=== PATIENT | female | born 1980 | race Caucasian/White ===

== ENCOUNTER 2019-08-11 19:42 | Emergency (ER) | payer MEDICAID ==
[~2019-08-11] VITALS: Ht 162.6 cm; Wt 81.6 kg
[2019-08-11 19:46] VITALS: BP_SYST 149
--- NOTE | 2019-08-11 20:56 | NUR ---
Patient to ER bed 4 to gown for evaluation. Side rails up. Report given to ALFONSO CORDON.
--- NOTE | 2019-08-11 21:20 | NUR ---
patient is alert and oriented x4 and ambulated to ER bed 4. Patient complains of severe anxiety that started about 5 days ago. She came in today because she was unable to tolerate it and feels like her heart is having palpitations. Patient complains of uncomfortable chest pain/pressure that feels as though it is straining. Patient rates it at 9/10. Patient states she feels fatigued and her head is throbbing. Patient denies feelings of nausea, vomiting, shortness of breath, or cough. Patient has a history of severe anxiety disorder and takes lorazepam. Patient has a hx of gallstones and gallbladder removal.
--- NOTE | 2019-08-11 21:29 | NUR ---
ER Dr. JAEGER at bedside examining patient.
--- NOTE | 2019-08-11 21:44 | NUR ---
# 20 gauge angiocath placed to RAC. Use of asceptic technique. Opsite placed over site. Blood return noted. Blood for lab drawn from site. Flushed with 10 cc of normal saline. No evidence of infiltration noted. Patient tolerated well.
[2019-08-11] MEDS ORDERED: LORazepam 2 MG/ML VIAL IM ONE (21:45)
[2019-08-11] MEDS ORDERED: ASPIRIN 81 MG TAB.CHEW PO ONE (21:45)
[2019-08-11 22:07] LABS: BASOPHILS % (AUTO) 0.6 % (0.0-2.0); EOSINOPHILS # (AUTO) 0.3 K/uL (0.0-0.4); EOSINOPHILS % (AUTO) 5.5 % (0.0-4.0); HEMATOCRIT 39.1 % (36-48); HEMOGLOBIN 13.1 g/dL (12.0-16.0); LYMPHOCYTES # (AUTO) 1.6 K/uL (1.0-5.5); LYMPHOCYTES % (AUTO) 25.5 % (20.5-51.5); MEAN CORPUSCULAR HEMOGLOBIN 32 pg (27-31); MEAN CORPUSCULAR HGB CONC 33 % (32-36); MEAN CORPUSCULAR VOLUME 96 fL (79.0-98.0); MONOCYTES # (AUTO) 0.4 K/uL (0.0-1.0); MONOCYTES % (AUTO) 5.8 % (1.7-9.3); NEUTROPHILS % (AUTO) 62.6 % (40.0-70.0); PLATELET COUNT (AUTO) 292 K/uL (130-430); RED BLOOD CELL COUNT(AUTO) 4.08 MIL/uL (4.2-6.2); RED CELL DISTRIBUTION WIDTH 14.1 % (9.0-15.0); WHITE BLOOD COUNT (AUTO) 6.4 K/uL (4.8-10.8)
[2019-08-11 22:10] LABS: CALCIUM 8.1 mg/dL (8.4-11.0); CREATININE 0.8 mg/dL (0.55-1.30); POTASSIUM 3.1 mmol/L (3.5-5.1)
--- NOTE | 2019-08-11 22:10 | NUR ---
Patient tolerated medications well.
[2019-08-11 22:24] LABS: ALBUMIN 3.7 g/dL (3.4-4.8); THYROID STIMULATING HORMONE 2.92 uIu/mL (0.36-3.74); TOTAL BILIRUBIN 0.4 mg/dL (0.0-1.0)
[2019-08-11] MEDS ORDERED: POTASSIUM CHLORIDE 10 MEQ TAB.PRT.SR PO ONE (23:15)
[2019-08-11] MEDS ORDERED: POTASSIUM CHLORIDE 20 MEQ TAB.PRT.SR PO ONE (23:15)
--- NOTE | 2019-08-11 23:18 | NUR ---
Patient tolerated medications well. Sitting comfortably in bed.
[2019-08-12 00:26] VITALS: BP_SYST 127
== END 2019-08-12 00:26 | disposition home or self-care (01) ==
LOC: SED 19:42
DX: E87.6 Hypokalemia (principal); R00.2 Palpitations; Z88.0 Allergy status to penicillin; Z88.2 Allergy status to sulfonamides; Z88.1 Allergy status to other antibiotic agents
CPT/HCPCS: 36415; 71045; 80053; 81025; 82550; 84443; 84484; 85025; 93005; 96372; 99285; J2060

== ENCOUNTER 2019-08-20 17:07 | Emergency (ER) | payer MEDICAID ==
[~2019-08-20] VITALS: Ht 162.6 cm; Wt 80.3 kg
--- NOTE | 2019-08-20 17:14 | NUR ---
Patient to ER bed 04 to gown for evaluation. Side rails up.
[2019-08-20 17:15] VITALS: BP_SYST 127
--- NOTE | 2019-08-20 17:15 | NUR ---
Patient arrived in the ED c/o increased anxiety that started today. Denied any chest pain or shortness of breath. Denied any fevers, nausea, vomiting, or chills. Patient is alert and oriented x4, respirations even and unlabored, speaking in full sentences, ambulating with a steady gait. VSS, pain level 0/10. Informed of wait time. Instructed to notify ED staff for any changes in condition or worsening of symptoms. Patient verbalized understanding.
--- NOTE | 2019-08-20 17:16 | NUR ---
ER Dr. Medrano at bedside examining patient.
[2019-08-20] MEDS ORDERED: LORazepam 1 MG TABLET PO ONE (17:30)
--- NOTE | 2019-08-20 17:35 | NUR ---
Administered Ativan PO as ordered by Dr. Medrano. Patient tolerated the medications well. See eMAR for details.
[2019-08-20 17:37] VITALS: BP_SYST 127
--- NOTE | 2019-08-20 17:37 | NUR ---
Patient given written and verbal discharge instructions and verbalizes understanding. ER MD discussed with patient the results and treatment provided. Patient in stable condition. ID arm band removed. No Rx given. Patient educated on pain management and to follow up with PMD. Pain Scale 0/10. Opportunity for questions provided and answered. Medication side effect fact sheet provided.
== END 2019-08-20 17:37 | disposition home or self-care (01) ==
LOC: SED 17:07
DX: F41.9 Anxiety disorder, unspecified (principal); Z76.0 Encounter for issue of repeat prescription; Z88.1 Allergy status to other antibiotic agents; Z88.0 Allergy status to penicillin; Z88.2 Allergy status to sulfonamides
CPT/HCPCS: 99283

== ENCOUNTER 2019-08-28 18:41 | Emergency (ER) | payer MEDICAID ==
[~2019-08-28] VITALS: Ht 162.6 cm; Wt 85.3 kg
[2019-08-28 19:07] VITALS: BP_SYST 138
[2019-08-28] MEDS ORDERED: TEMAZEPAM 15 MG CAPSULE PO ONE (20:45)
[2019-08-28] MEDS ORDERED: TEMAZEPAM 15 MG CAPSULE ONE (20:56)
[2019-08-28 21:48] VITALS: BP_SYST 138
== END 2019-08-28 21:48 | disposition home or self-care (01) ==
LOC: SED 18:41
DX: F41.9 Anxiety disorder, unspecified (principal); Z88.0 Allergy status to penicillin; Z88.1 Allergy status to other antibiotic agents; Z88.2 Allergy status to sulfonamides
CPT/HCPCS: 99283

== ENCOUNTER 2019-12-28 20:01 | Emergency (ER) | payer MEDICAID ==
[~2019-12-28] VITALS: Ht 162.6 cm; Wt 81.6 kg
[2019-12-28 20:05] VITALS: BP_SYST 137
[2019-12-28] MEDS: ALPRAZolam 0.25 MG TABLET PO ONE (20:47)
[2019-12-28 21:00] VITALS: BP_SYST 137
== END 2019-12-28 21:00 | disposition home or self-care (01) ==
LOC: SED 20:01
DX: H10.89 Other conjunctivitis (principal); F41.9 Anxiety disorder, unspecified; Z88.1 Allergy status to other antibiotic agents; Z88.2 Allergy status to sulfonamides; Z88.0 Allergy status to penicillin
CPT/HCPCS: 99283

== ENCOUNTER 2019-12-31 22:25 | Emergency (ER) | payer MEDICAID ==
[~2019-12-31] VITALS: Ht 162.6 cm; Wt 81.6 kg
[2019-12-31 22:30] VITALS: BP_SYST 146
[2020-01-01] MEDS ORDERED: traZODone HCL 50 MG TABLET (DESYREL) PO ONE (00:30)
[2020-01-01 00:55] VITALS: BP_SYST 146
[2020-01-01] MEDS ORDERED: traZODone HCL 50 MG TABLET (DESYREL) ONE (01:07)
== END 2020-01-01 00:55 | disposition home or self-care (01) ==
LOC: SED 22:25
DX: F41.9 Anxiety disorder, unspecified (principal); F32.9 Major depressive disorder, single episode, unspecified; I10 Essential (primary) hypertension; R00.0 Tachycardia, unspecified; Z79.899 Other long term (current) drug therapy
CPT/HCPCS: 93005; 99283

== ENCOUNTER 2020-01-15 15:50 | Emergency (ER) | payer MEDICAID ==
[~2020-01-15] VITALS: Ht 157.5 cm; Wt 72.6 kg
[2020-01-15 15:50] VITALS: BP_SYST 118
--- NOTE | 2020-01-15 15:50 | NUR ---
Placed in room 4. Placed on alarm security or surveillance monitor, blood pressure machine and pulse oximeter. To gown for exam. Side rails up. Report given to BRAVO Guerin.
--- NOTE | 2020-01-15 15:55 | NUR ---
Patient presented to ER C/O CHEST PAIN. Patient A&Ox4, ambulatory to ER, afebrile, skin pink and warm, pain 6/10, denies N/V/D. Patient states has sudden onset chest pain.
--- NOTE | 2020-01-15 15:55 | NUR ---
Note siobhanmicheal in ED - 01/15/20 at 1703 by ANGEL LUISEDKERWIN Patient presented to ER C/O BODY ACHES. Patient A&Ox4, ambulatory to ER, afebrile, skin pink and warm, pain 05/19, denies N/V/D. Patient states has body aches x1 week, self medicating with PO [place]. Patient states she has HX Lupus.
--- NOTE | 2020-01-15 16:15 | NUR ---
ER Dr. DESHPANDE at bedside examining patient.
[2020-01-15 16:20] VITALS: BP_SYST 121
== END 2020-01-15 16:51 | disposition left against medical advice (07) ==
LOC: SED 15:50
DX: F41.0 Panic disorder [episodic paroxysmal anxiety] (principal); Z88.0 Allergy status to penicillin; Z88.1 Allergy status to other antibiotic agents; Z88.2 Allergy status to sulfonamides
CPT/HCPCS: 93005; 99283; J3410

== ENCOUNTER 2020-04-27 00:18 | Emergency (ER) | payer MEDICAID, OTHER ==
[~2020-04-27] VITALS: Ht 162.6 cm; Wt 81.2 kg
[2020-04-27 00:26] VITALS: BP_SYST 159
[2020-04-27] MEDS ORDERED: SERT50TA PO (00:31)
[2020-04-27] MEDS ORDERED: LORA-259 PO (00:32)
--- NOTE | 2020-04-27 01:00 | NUR ---
PT PLACED IN ED WILSON CHAIR
--- NOTE | 2020-04-27 01:01 | NUR ---
PT BIB SELF PT. REPORTS PRESCRIPTION OF LORAZEPAM RUNNING OUT YESTERDAY AND SINCE THEN SHE STATES FEELING HER HEART RATE INCREASE AT RANDOM AND THEN MAKING HER PANIC PT STATES ALLERGY TO KEFLEX, PENICILLIN, SULFATE, AND TORODOL. PT HAS A HISTORY OF ANXIETY. PT. VITAL SIGNS WITHIN NORMAL LIMITS WILL CONTINUE TO MONITOR.
--- NOTE | 2020-04-27 01:59 | NUR ---
PT RSTING QUIETLY IN ED CHAIR IN NO DISTRESS
--- NOTE | 2020-04-27 02:57 | NUR ---
REPORT GIVEN TO BRAVO PEOPLES WHO WILL ASSUME CARE
--- NOTE | 2020-04-27 02:57 | NUR ---
Assumed care of patient at change of shift. Introduced self to patient positoned for comfort and safety w/ bed to low position sr up, continkue to monitor. Patient resting quietly. No acute distress noted. Vital signs within normal range.
--- NOTE | 2020-04-27 03:53 | NUR ---
KENDELL Bartholomew at bedside examining patient.
--- NOTE | 2020-04-27 04:28 | NUR ---
Patient resting quietly and comfortably at this time. No acute distress noted. Vital signs within normal range. Awaiting for MD evaluation and dispo
[2020-04-27] MEDS ORDERED: ACETAMINOPHEN 325 MG TABLET ONE (05:26)
[2020-04-27] MEDS: ACETAMINOPHEN 325 MG TABLET PO ONE (05:30)
--- NOTE | 2020-04-27 05:31 | NUR ---
patient medicated as ordered. will observe for any adverse reaction. Bed to low position, sr up continue to monitor.
[2020-04-27 06:33] VITALS: BP_SYST 150
--- NOTE | 2020-04-27 06:33 | NUR ---
Patient given written and verbal discharge instructions and verbalizes understanding. ER MD discussed with patient the results and treatment provided. Patient in stable condition. ID arm band removed.. Rx of given. Patient educated on pain management and to follow up with PMD. Pain Scale . Opportunity for questions provided and answered. Medication side effect fact sheet provided.
== END 2020-04-27 06:33 | disposition home or self-care (01) ==
LOC: SED 00:18
DX: F41.9 Anxiety disorder, unspecified (principal); Z88.0 Allergy status to penicillin; Z88.2 Allergy status to sulfonamides; Z88.6 Allergy status to analgesic agent
CPT/HCPCS: 93005; 99283

== ENCOUNTER 2020-05-20 16:49 | Emergency (ER) | payer OTHER ==
[~2020-05-20] VITALS: Ht 162.6 cm; Wt 80.3 kg
[~2020-05-20 16:49] MED LIST: LORA-259 PO; SERT50TA PO
[2020-05-20 17:14] VITALS: BP_SYST 129
[2020-05-20] MEDS ORDERED: LORazepam 1 MG TABLET PO ONE (17:45)
[2020-05-20 17:52] VITALS: BP_SYST 129
== END 2020-05-20 17:52 | disposition home or self-care (01) ==
LOC: SED 16:49
DX: F41.9 Anxiety disorder, unspecified (principal); Z88.0 Allergy status to penicillin; Z88.6 Allergy status to analgesic agent; Z88.2 Allergy status to sulfonamides
CPT/HCPCS: 99283

== ENCOUNTER 2020-06-02 15:42 | Emergency (ER) | payer OTHER ==
[~2020-06-02] VITALS: Ht 162.6 cm; Wt 80.7 kg
[2020-06-02 15:45] VITALS: BP_SYST 139
[2020-06-02] MEDS ORDERED: LORazepam 1 MG TABLET ONE (15:59)
[2020-06-02] MEDS ORDERED: LORazepam 1 MG TABLET PO ONE (16:00)
[2020-06-02 16:55] VITALS: BP_SYST 138
== END 2020-06-02 16:55 | disposition home or self-care (01) ==
LOC: SED 15:42
DX: F41.9 Anxiety disorder, unspecified (principal); Z88.0 Allergy status to penicillin; Z88.2 Allergy status to sulfonamides; Z88.1 Allergy status to other antibiotic agents; Z88.8 Allergy status to other drugs, medicaments and biological substances; Z79.899 Other long term (current) drug therapy
CPT/HCPCS: 93005; 99283

== ENCOUNTER 2020-06-17 19:11 | Emergency (ER) | payer OTHER ==
[~2020-06-17] VITALS: Ht 162.6 cm; Wt 79.4 kg
[2020-06-17 19:31] VITALS: BP_SYST 126
[2020-06-17] MEDS ORDERED: LORazepam 1 MG TABLET PO ONE (20:30)
[2020-06-17 21:23] VITALS: BP_SYST 126
== END 2020-06-17 21:23 | disposition home or self-care (01) ==
LOC: SED 19:11
DX: F41.9 Anxiety disorder, unspecified (principal); Z88.0 Allergy status to penicillin; Z88.2 Allergy status to sulfonamides; Z88.6 Allergy status to analgesic agent
CPT/HCPCS: 99283

== ENCOUNTER 2020-07-21 18:10 | Emergency (ER) | payer OTHER ==
[~2020-07-21] VITALS: Ht 162.6 cm; Wt 80.7 kg
[2020-07-21 18:16] VITALS: BP_SYST 135
[2020-07-21] MEDS ORDERED: LORazepam 2 MG/ML VIAL IM ONE (18:45)
[2020-07-21] MEDS ORDERED: ONDANSETRON 4 MG ODT TAB PO ONE (18:45)
[2020-07-21 19:06] VITALS: BP_SYST 132
== END 2020-07-21 19:06 | disposition home or self-care (01) ==
LOC: SED 18:10
DX: F41.9 Anxiety disorder, unspecified (principal); Z88.0 Allergy status to penicillin; Z88.1 Allergy status to other antibiotic agents; Z88.2 Allergy status to sulfonamides; Z79.899 Other long term (current) drug therapy
CPT/HCPCS: 96372; 99283; J2060; Q0162

== ENCOUNTER 2020-08-18 11:53 | Emergency (ER) | payer OTHER ==
[~2020-08-18] VITALS: Ht 162.6 cm; Wt 80.3 kg
[2020-08-18 11:53] VITALS: BP_SYST 121
[2020-08-18 13:20] VITALS: BP_SYST 122
== END 2020-08-18 13:20 | disposition home or self-care (01) ==
LOC: SED 11:53
DX: F41.9 Anxiety disorder, unspecified (principal); R00.2 Palpitations; Z88.0 Allergy status to penicillin; Z88.1 Allergy status to other antibiotic agents; Z88.2 Allergy status to sulfonamides; Z79.899 Other long term (current) drug therapy
CPT/HCPCS: 93005; 99283

== ENCOUNTER 2020-12-02 02:16 | Emergency (ER) | payer OTHER ==
[~2020-12-02] VITALS: Ht 162.6 cm; Wt 83.9 kg
[2020-12-02 02:16] VITALS: BP_SYST 139
[2020-12-02] MEDS ORDERED: ACETAMINOPHEN 500 MG TABLET PO ONE (03:15)
[2020-12-02] MEDS ORDERED: LORazepam 1 MG TABLET PO ONE (03:15)
[2020-12-02] MEDS ORDERED: LORazepam 1 MG TABLET ONE (03:27)
[2020-12-02 05:10] VITALS: BP_SYST 139
== END 2020-12-02 05:10 | disposition home or self-care (01) ==
LOC: SED 02:16
DX: F41.9 Anxiety disorder, unspecified (principal); M54.5 Low back pain; Z88.0 Allergy status to penicillin; Z88.1 Allergy status to other antibiotic agents; Z88.2 Allergy status to sulfonamides; Z79.899 Other long term (current) drug therapy
CPT/HCPCS: 99283

== ENCOUNTER 2021-07-27 18:16 | Emergency (ER) | payer OTHER ==
[~2021-07-27] VITALS: Ht 162.6 cm; Wt 85.7 kg
[2021-07-27 18:25] VITALS: BP_SYST 138
--- NOTE | 2021-07-27 18:30 | NUR ---
ED MD AT BEDSIDE FOR EVALUATION
--- NOTE | 2021-07-27 18:30 | NUR ---
RECEIVED PATIENT IN BED 3 FROM HOME WITH CC OF PALPITATIONS WITH ANXIETY SYMPTOMS. PATIENT WAS HOPING TO WAIT UNTIL TOMORROW WHEN SHE HAS APPT WITH PSYCH FOR NEW RX SHE RAN OUT. PT TO BE SEEN BY ED MD FOR PLAN OF CARE WITH TRISH.
[2021-07-27] MEDS ORDERED: LORazepam 2 MG/ML VIAL IM ONE (18:45)
[2021-07-27] MEDS ORDERED: CARB15DR93 RIGHT EAR (19:13)
--- NOTE | 2021-07-27 19:22 | NUR ---
Patient given written and verbal discharge instructions and verbalizes understanding. ER MD discussed with patient the results and treatment provided. Patient in stable condition. ID arm band removed. Patient educated on pain management and to follow up with PMD. Opportunity for questions provided and answered. Medication side effect fact sheet provided. Pt exited ED in stablw gait. AOX4.
== END 2021-07-27 19:23 | disposition home or self-care (01) ==
LOC: SED 18:16
DX: F41.9 Anxiety disorder, unspecified (principal); H61.21 Impacted cerumen, right ear; Z79.899 Other long term (current) drug therapy
CPT/HCPCS: 93005; 96372; 99283; J2060

== ENCOUNTER 2021-08-02 23:24 | Emergency (ER) | payer OTHER ==
[~2021-08-02] VITALS: Ht 162.6 cm; Wt 86.2 kg
[~2021-08-02 23:24] MED LIST changes: +CARB15DR93 RIGHT EAR
[2021-08-02 23:30] VITALS: BP_SYST 147
--- NOTE | 2021-08-02 23:34 | NUR ---
Placed in room 4 . Placed on fire alarm operator, blood pressure machine and pulse oximeter. To gown for exam. Side rails up. Report given to MARK CORDON(REG).
--- NOTE | 2021-08-02 23:50 | NUR ---
First contact. Pt presently on monitor.
--- NOTE | 2021-08-03 00:09 | NUR ---
ER at bedside examining patient.
[2021-08-03] MEDS ORDERED: LORazepam 1 MG TABLET PO ONE ×2 (00:30→03:00)
[2021-08-03 01:16] LABS: ANION GAP 14 (5-15); CALCIUM 9.7 mg/dL (8.4-11.0); CHLORIDE 100 mmol/L (98-107); CREATININE 0.67 mg/dL (0.55-1.30); GLUCOSE 101 mg/dL (70-99); SODIUM SERUM 139 mmol/L (136-145); UREA NITROGEN, BLOOD 9 mg/dL (8-21)
[2021-08-03 01:24] LABS: BASOPHILS % (AUTO) 0.5 % (0.0-2.0); EOSINOPHILS # (AUTO) 0.5 K/uL (0.0-0.4); EOSINOPHILS % (AUTO) 6.9 % (0.0-4.0); HEMATOCRIT 38.4 % (36-48); LYMPHOCYTES # (AUTO) 1.4 K/uL (1.0-5.5); LYMPHOCYTES % (AUTO) 20.7 % (20.5-51.5); MEAN CORPUSCULAR HEMOGLOBIN 31 pg (27-31); MEAN CORPUSCULAR HGB CONC 34 % (32-36); MEAN CORPUSCULAR VOLUME 91 fL (79.0-98.0); MONOCYTES # (AUTO) 0.4 K/uL (0.0-1.0); MONOCYTES % (AUTO) 6.1 % (1.7-9.3); NEUTROPHILS # (AUTO) 4.6 K/uL (1.8-7.7); NEUTROPHILS % (AUTO) 65.8 % (40.0-70.0); PLATELET COUNT (AUTO) 286 K/uL (130-430); RED CELL DISTRIBUTION WIDTH 16.7 % (9.0-15.0)
[2021-08-03 01:27] LABS: ALANINE AMINOTRANSFERASE 116 U/L (12-78); ALBUMIN 3.9 g/dL (3.4-4.8); ASPARTATE AMINOTRANSFERASE 90 U/L (10-37); TOTAL BILIRUBIN 0.1 mg/dL (0.0-1.0)
[2021-08-03 01:39] LABS: GFR AFRICAN AMERICAN 126 mL/min (>90)
[2021-08-03] MEDS ORDERED: LORazepam 1 MG TABLET ONE ×2 (02:03→03:04)
[2021-08-03 02:40] VITALS: BP_SYST 124
--- NOTE | 2021-08-03 03:08 | NUR ---
Patient given written and verbal discharge instructions and verbalizes understanding. ER MD discussed with patient the results and treatment provided. Patient in stable condition. ID arm band removed. IV catheter removed intact and dressing applied, no active bleeding. Patient educated on pain management and to follow up with PMD. Opportunity for questions provided and answered.
== END 2021-08-03 03:08 | disposition home or self-care (01) ==
LOC: SED 23:24
DX: R00.2 Palpitations (principal); F41.9 Anxiety disorder, unspecified; Z88.0 Allergy status to penicillin; Z88.1 Allergy status to other antibiotic agents; Z88.2 Allergy status to sulfonamides; Z79.899 Other long term (current) drug therapy
CPT/HCPCS: 36415; 71045; 80053; 83880; 84484; 85025; 93005; 99285

== ENCOUNTER 2021-08-09 20:33 | Emergency (ER) | payer OTHER ==
[~2021-08-09] VITALS: Ht 162.6 cm; Wt 86.2 kg
[2021-08-09 20:41] VITALS: BP_SYST 136
[2021-08-09] MEDS ORDERED: METOCLOPRAMIDE HCL 10 MG/2 ML VIAL IM ONE (21:30)
[2021-08-09] MEDS ORDERED: HYDROcodone/ACETAMIN 5-325 MG TAB (NORCO/ VICODIN) PO ONE (21:30)
[2021-08-09 23:30] VITALS: BP_SYST 123
== END 2021-08-10 00:25 | disposition home or self-care (01) ==
LOC: SED 20:33
DX: R51.9 Headache, unspecified (principal); F41.9 Anxiety disorder, unspecified
CPT/HCPCS: 81025; 96372; 99285; J2765

== ENCOUNTER 2021-08-23 15:03 | Emergency (ER) | payer OTHER ==
[~2021-08-23] VITALS: Ht 162.6 cm; Wt 85.7 kg
[2021-08-23 15:10] VITALS: BP_SYST 137
[2021-08-23] MEDS ORDERED: LORazepam 2 MG/ML VIAL IM ONE (18:15)
[2021-08-23 18:17] VITALS: BP_SYST 129
== END 2021-08-23 18:18 | disposition home or self-care (01) ==
LOC: SED 15:03
DX: F41.9 Anxiety disorder, unspecified (principal); R00.2 Palpitations; I10 Essential (primary) hypertension; Z88.0 Allergy status to penicillin; Z88.2 Allergy status to sulfonamides; Z88.1 Allergy status to other antibiotic agents; Z88.6 Allergy status to analgesic agent
CPT/HCPCS: 93005; 96372; 99283; J2060

== ENCOUNTER 2021-09-19 18:01 | Emergency (ER) | payer OTHER ==
[~2021-09-19] VITALS: Ht 162.6 cm; Wt 85.7 kg
[2021-09-19 18:12] VITALS: BP_SYST 131
--- NOTE | 2021-09-19 18:16 | NUR ---
Assessed pt and pt is waiting in waiting room until a bed becomes available. Pt is A&Ox4. Ambulatory with steady gait. Skin is intact. Pt c/o palpitations, fatigue, and nausea since wednesday. Pt has no pain. No sob. No vomiting. VSS. Has hx of anxiety and chest pain. Allergic to penicillin, toradol, keflex, and sulfa. Hx of gallbladder removal. LMP 08/27/21. Dr. Anderson made aware.
--- NOTE | 2021-09-19 18:20 | NUR ---
EKG performed at by Yulia [facility]. Physician given copy of EKG for review.
[2021-09-19 19:54] LABS: BASOPHILS % (AUTO) 0.6 % (0.0-2.0); EOSINOPHILS # (AUTO) 0.4 K/uL (0.0-0.4); EOSINOPHILS % (AUTO) 5.6 % (0.0-4.0); HEMATOCRIT 37.9 % (36-48); HEMOGLOBIN 12.9 g/dL (12.0-16.0); LYMPHOCYTES # (AUTO) 1.4 K/uL (1.0-5.5); LYMPHOCYTES % (AUTO) 18.4 % (20.5-51.5); MEAN CORPUSCULAR HEMOGLOBIN 32 pg (27-31); MEAN CORPUSCULAR HGB CONC 34 % (32-36); MEAN CORPUSCULAR VOLUME 94 fL (79.0-98.0); MONOCYTES # (AUTO) 0.5 K/uL (0.0-1.0); NEUTROPHILS # (AUTO) 5.4 K/uL (1.8-7.7); NEUTROPHILS % (AUTO) 69.4 % (40.0-70.0); PLATELET COUNT (AUTO) 207 K/uL (130-430); RED BLOOD CELL COUNT(AUTO) 4.04 MIL/uL (4.2-6.2); RED CELL DISTRIBUTION WIDTH 14.4 % (9.0-15.0); WHITE BLOOD COUNT (AUTO) 7.8 K/uL (4.8-10.8)
[2021-09-19 20:03] LABS: ANION GAP 8 (5-15); CALCIUM 8.3 mg/dL (8.4-11.0); CHLORIDE 103 mmol/L (98-107); CREATININE 0.74 mg/dL (0.55-1.30); GLUCOSE 99 mg/dL (70-99); POTASSIUM 4.2 mmol/L (3.5-5.1); SODIUM SERUM 139 mmol/L (136-145); UREA NITROGEN, BLOOD 8 mg/dL (8-21)
[2021-09-19 20:04] LABS: GFR AFRICAN AMERICAN 112 mL/min (>90)
[2021-09-19 20:14] LABS: ALANINE AMINOTRANSFERASE 73 U/L (12-78); ALBUMIN 3.6 g/dL (3.4-4.8); ASPARTATE AMINOTRANSFERASE 48 U/L (10-37); HCG,QUANTITATIVE 0 mIU/ML (0-6); TOTAL BILIRUBIN 0.2 mg/dL (0.0-1.0)
--- NOTE | 2021-09-19 21:50 | NUR ---
ER examining patient in the traige room.
[2021-09-19] MEDS ORDERED: LORA-259 PO ×5 (21:53→22:23)
--- NOTE | 2021-09-19 22:20 | NUR ---
Patient given written and verbal discharge instructions and verbalizes understanding. ER MD discussed with patient the results and treatment provided. Patient in stable condition. ID arm band removed. Rx of Ativan 1mg given. Patient educated on pain management and to follow up with PMD. Pain Scale 0/10. Opportunity for questions provided and answered. Medication side effect fact sheet provided.
[2021-09-19 22:21] VITALS: BP_SYST 129
== END 2021-09-19 22:20 | disposition home or self-care (01) ==
LOC: SED 18:01
DX: R00.2 Palpitations (principal); Z76.0 Encounter for issue of repeat prescription; I10 Essential (primary) hypertension; Z88.0 Allergy status to penicillin; Z88.1 Allergy status to other antibiotic agents; Z88.2 Allergy status to sulfonamides; Z88.6 Allergy status to analgesic agent
CPT/HCPCS: 36415; 71046-TC; 80053; 83880; 84484; 84702; 85025; 93005; 99284

== ENCOUNTER 2021-10-04 13:30 | Emergency (ER) | payer OTHER ==
[~2021-10-04] VITALS: Ht 162.6 cm; Wt 81.6 kg
[2021-10-04 13:45] VITALS: BP_SYST 127
[2021-10-04] MEDS ORDERED: LORazepam 1 MG TABLET PO ONE (15:30)
== END 2021-10-04 15:25 | disposition left against medical advice (07) ==
LOC: SED 13:30
DX: F43.0 Acute stress reaction (principal); Z79.899 Other long term (current) drug therapy
CPT/HCPCS: 93005; 99283

== ENCOUNTER 2021-10-22 22:38 | Emergency (ER) | payer OTHER ==
[~2021-10-22] VITALS: Ht 162.6 cm; Wt 86.2 kg
[2021-10-22 22:42] VITALS: BP_SYST 136
--- NOTE | 2021-10-22 23:31 | NUR ---
ASSUME CARE OF THIS PT HERE FOR PALPITATION D/T ANXIETY ATTACK PT STATED THAT PROBABLY BEC OF THE STRESS, NO SOB NOTED, DENIES N/V/D, DENIES FEVER. PMH: ANXIETY,HTN PRESENTED HERE AAOX4, PT PLACED ON CARDIAC MONITORS. PENDING MD DANIELS.
--- NOTE | 2021-10-22 23:40 | NUR ---
EKG DONE AT BEDSIDE
[2021-10-23 00:31] LABS: RED BLOOD CELL COUNT(AUTO) 3.91 MIL/uL (4.2-6.2); WHITE BLOOD COUNT (AUTO) 6.2 K/uL (4.8-10.8)
--- NOTE | 2021-10-23 00:31 | NUR ---
KENDELL Bartholomew at bedside examining patient.
[2021-10-23 00:35] LABS: BASOPHILS % (AUTO) 0.7 % (0.0-2.0); EOSINOPHILS # (AUTO) 0.5 K/uL (0.0-0.4); EOSINOPHILS % (AUTO) 7.6 % (0.0-4.0); HEMATOCRIT 36.6 % (36-48); HEMOGLOBIN 12.7 g/dL (12.0-16.0); LYMPHOCYTES # (AUTO) 1.3 K/uL (1.0-5.5); LYMPHOCYTES % (AUTO) 21.9 % (20.5-51.5); MEAN CORPUSCULAR HEMOGLOBIN 32 pg (27-31); MEAN CORPUSCULAR HGB CONC 35 % (32-36); MEAN CORPUSCULAR VOLUME 94 fL (79.0-98.0); MONOCYTES # (AUTO) 0.5 K/uL (0.0-1.0); MONOCYTES % (AUTO) 7.7 % (1.7-9.3); NEUTROPHILS # (AUTO) 3.8 K/uL (1.8-7.7); NEUTROPHILS % (AUTO) 62.1 % (40.0-70.0); PLATELET COUNT (AUTO) 216 K/uL (130-430); RED CELL DISTRIBUTION WIDTH 14.1 % (9.0-15.0)
[2021-10-23 00:38] LABS: ANION GAP 9 (5-15); CHLORIDE 107 mmol/L (98-107); CREATININE 0.68 mg/dL (0.55-1.30); GLUCOSE 92 mg/dL (70-99); POTASSIUM 3.8 mmol/L (3.5-5.1); SODIUM SERUM 140 mmol/L (136-145); UREA NITROGEN, BLOOD 9 mg/dL (8-21)
[2021-10-23] MEDS ORDERED: LORazepam 1 MG TABLET PO ONE (00:45)
[2021-10-23 00:47] LABS: ALANINE AMINOTRANSFERASE 141 U/L (12-78); ALBUMIN 3.3 g/dL (3.4-4.8); ASPARTATE AMINOTRANSFERASE 146 U/L (10-37); TOTAL BILIRUBIN 0.2 mg/dL (0.0-1.0)
[2021-10-23 00:49] LABS: GFR AFRICAN AMERICAN 124 mL/min (>90)
[2021-10-23 00:55] VITALS: BP_SYST 133
--- NOTE | 2021-10-23 00:56 | NUR ---
DC PATIENT AAOX4, NO SOB NOTED AND NOT IN ANY DISTRESS, DC INSTRUCTION WERE GIVEN TO PT AND SHE VERBALIZED UNDERSTANDING
== END 2021-10-23 00:56 | disposition home or self-care (01) ==
LOC: SED 22:38
DX: F41.1 Generalized anxiety disorder (principal); R07.89 Other chest pain; F45.41 Pain disorder exclusively related to psychological factors; F13.20 Sedative, hypnotic or anxiolytic dependence, uncomplicated; I10 Essential (primary) hypertension; Z88.0 Allergy status to penicillin; Z88.1 Allergy status to other antibiotic agents; Z88.5 Allergy status to narcotic agent; Z88.6 Allergy status to analgesic agent
CPT/HCPCS: 36415; 71045; 80053; 83880; 84484; 85025; 85379; 93005; 99285

== ENCOUNTER 2021-10-23 14:34 | Emergency (ER) | payer OTHER ==
[~2021-10-23] VITALS: Ht 162.6 cm; Wt 83.9 kg
[2021-10-23 14:35] VITALS: BP_SYST 128
--- NOTE | 2021-10-23 14:35 | NUR ---
BROUGHT BACK TO BED #5 AND TRIAGED. REPORT GIVEN TO TRACIE
--- NOTE | 2021-10-23 14:44 | NUR ---
Pt alert and oriented x 3 upon face to face assessment. Here from home reporting feeling "anxious", and having h/a and upper back tension due to personal issues. Reports intermittent palpitations. Ambulated with steady gait to rm 5. Pending MD campos.
[2021-10-23] MEDS ORDERED: LORazepam 2 MG/ML VIAL IM ONE (14:45)
--- NOTE | 2021-10-23 14:45 | NUR ---
ER Dr. Caro at bedside examining patient.
--- NOTE | 2021-10-23 14:49 | NUR ---
Report to Nevin RN to assume care of patient.
[2021-10-23 15:03] VITALS: BP_SYST 132
--- NOTE | 2021-10-23 15:18 | NUR ---
Patient given written and verbal discharge instructions and verbalizes understanding. ER MD discussed with patient the results and treatment provided. Patient in stable condition. ID arm band removed. Patient educated on pain management and to follow up with PMD. Pain Scale . Opportunity for questions provided and answered. Medication side effect fact sheet provided.
--- NOTE | 2021-10-23 15:20 | NUR ---
PT DISCHARGED BY DR HENDERSON
== END 2021-10-23 15:20 | disposition home or self-care (01) ==
LOC: SED 14:34
DX: R06.4 Hyperventilation (principal); F41.9 Anxiety disorder, unspecified; I10 Essential (primary) hypertension; Z88.0 Allergy status to penicillin; Z88.1 Allergy status to other antibiotic agents; Z88.2 Allergy status to sulfonamides; Z88.6 Allergy status to analgesic agent
CPT/HCPCS: 96372; 99283; J2060

== ENCOUNTER → 2021-11-22 | Emergency (ER) | payer OTHER ==
[~2021-11-22] VITALS: Ht 162.6 cm; Wt 81.6 kg
[~2021-11-22] MED LIST changes: +LORazepam 1 MG TABLET PO ONE
[2021-11-22 17:21] VITALS: BP_SYST 147
--- NOTE | 2021-11-22 17:30 | NUR ---
Pt brought by self, A&Ox4, pt presents to ER with anxiety, chest discomfort since today, skin pink and warm, cap refill <3, VSS, respirations even and unlabored, will cont to monitor.
--- NOTE | 2021-11-22 17:45 | NUR ---
Jorge rosas in [facility] - 11/22/21 at [email or web address] May evaluating patient at bedside
--- NOTE | 2021-11-22 17:50 | NUR ---
Dr aMy evaluating patient in the triage room
[2021-11-22 20:18] VITALS: BP_SYST 147
== END | disposition home or self-care (01) ==
LOC: SED 17:18
DX: F41.9 Anxiety disorder, unspecified (principal); R07.9 Chest pain, unspecified; R06.02 Shortness of breath; I10 Essential (primary) hypertension; Z88.0 Allergy status to penicillin; Z88.1 Allergy status to other antibiotic agents; Z88.2 Allergy status to sulfonamides; Z88.6 Allergy status to analgesic agent; Z79.899 Other long term (current) drug therapy
CPT/HCPCS: 71045; 81025; 93005; 99283

== ENCOUNTER 2021-12-12 01:06 | Emergency (ER) | payer OTHER ==
[~2021-12-12] VITALS: Ht 162.6 cm; Wt 81.6 kg
[~2021-12-12 01:06] MED LIST changes: -LORazepam 1 MG TABLET PO ONE
[2021-12-12 01:25] VITALS: BP_SYST 121
[2021-12-12] MEDS ORDERED: LORA-259 PO (02:36)
[2021-12-12 03:11] VITALS: BP_SYST 127
== END 2021-12-12 03:11 | disposition home or self-care (01) ==
LOC: SED 01:06
DX: F41.9 Anxiety disorder, unspecified (principal); R00.2 Palpitations; I10 Essential (primary) hypertension; Z88.0 Allergy status to penicillin; Z88.1 Allergy status to other antibiotic agents; Z88.2 Allergy status to sulfonamides; Z88.6 Allergy status to analgesic agent; Z79.899 Other long term (current) drug therapy
CPT/HCPCS: 93005; 99283

== ENCOUNTER 2022-01-10 14:06 | Emergency (ER) | payer OTHER ==
[~2022-01-10] VITALS: Ht 162.6 cm; Wt 81.6 kg
[2022-01-10 14:10] VITALS: BP_SYST 139
--- NOTE | 2022-01-10 14:10 | NUR ---
Patient triaged and placed in waiting room. VSS and patient appears in no acute distress at this time. Accompanied by SELF, awaiting available bed, and MD notified of need for MSE.
--- NOTE | 2022-01-10 15:35 | NUR ---
ER DR. HARMON EXAMINING PT IN TRIAGE
[2022-01-10] MEDS ORDERED: LORA-259 PO (15:50)
[2022-01-10] MEDS ORDERED: LORazepam 1 MG TABLET PO ONE (16:00)
[2022-01-10 16:40] VITALS: BP_SYST 139
--- NOTE | 2022-01-10 16:41 | NUR ---
Patient given written and verbal discharge instructions and verbalizes understanding. ER MD discussed with patient the results and treatment provided. Patient in stable condition. ID arm band removed. Rx of ATIVAN given. Patient educated on pain management and to follow up with PMD. Pain Scale 0/10. Opportunity for questions provided and answered. Medication side effect fact sheet provided.
== END 2022-01-10 16:40 | disposition home or self-care (01) ==
LOC: SED 14:06
DX: F41.9 Anxiety disorder, unspecified (principal); I10 Essential (primary) hypertension; Z88.0 Allergy status to penicillin; Z88.1 Allergy status to other antibiotic agents; Z88.2 Allergy status to sulfonamides; Z88.6 Allergy status to analgesic agent; Z79.899 Other long term (current) drug therapy
CPT/HCPCS: 99283

== ENCOUNTER 2022-02-09 17:25 | Emergency (ER) | payer OTHER ==
[~2022-02-09] VITALS: Ht 162.6 cm; Wt 86.2 kg
[2022-02-09 17:25] VITALS: BP_SYST 139
--- NOTE | 2022-02-09 17:27 | NUR ---
Patient triaged and placed in waiting room. VSS and patient appears in no acute distress at this time. Accompanied by SELF, awaiting available bed, and MD notified of need for MSE.
[2022-02-09] MEDS ORDERED: LORazepam 1 MG TABLET PO ONE (19:15)
[2022-02-09] MEDS ORDERED: LORA-259 PO (19:22)
--- NOTE | 2022-02-09 20:03 | NUR ---
Patient given written and verbal discharge instructions and verbalizes understanding. ER MD DR HARMON discussed with patient the results and treatment provided. Patient in stable condition. ID arm band removed. Rx OF ATIVAN given. Patient educated on pain management and to follow up with PMD. Pain Scale 0/10. Opportunity for questions provided and answered. Medication side effect fact sheet provided.
[2022-02-09 20:05] VITALS: BP_SYST 135
== END 2022-02-09 20:05 | disposition home or self-care (01) ==
LOC: SED 17:25
DX: F41.9 Anxiety disorder, unspecified (principal); R07.9 Chest pain, unspecified; I10 Essential (primary) hypertension; Z88.0 Allergy status to penicillin; Z88.1 Allergy status to other antibiotic agents; Z88.2 Allergy status to sulfonamides; Z88.6 Allergy status to analgesic agent; Z79.899 Other long term (current) drug therapy
CPT/HCPCS: 93005; 99283

== ENCOUNTER 2022-04-02 19:37 | Emergency (ER) | payer OTHER ==
[~2022-04-02] VITALS: Ht 162.6 cm; Wt 81.6 kg
[2022-04-02 19:59] VITALS: BP_SYST 142
[2022-04-02] MEDS ORDERED: LORazepam 1 MG TABLET PO ONE (20:45)
[2022-04-02] MEDS ORDERED: LORazepam 1 MG TABLET ONE (21:27)
[2022-04-02 21:53] VITALS: BP_SYST 135
== END 2022-04-02 21:53 | disposition home or self-care (01) ==
LOC: SED 19:37
DX: F41.9 Anxiety disorder, unspecified (principal); R53.83 Other fatigue; R07.9 Chest pain, unspecified; I10 Essential (primary) hypertension; Z88.0 Allergy status to penicillin; Z88.1 Allergy status to other antibiotic agents; Z88.2 Allergy status to sulfonamides; Z88.6 Allergy status to analgesic agent; Z79.899 Other long term (current) drug therapy
CPT/HCPCS: 93005; 99283

== ENCOUNTER 2022-06-30 03:04 | Emergency (ER) | payer OTHER ==
[~2022-06-30] VITALS: Ht 162.6 cm; Wt 77.1 kg
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
[2022-06-30 03:23] VITALS: BP_SYST 132
--- NOTE | 2022-06-30 03:27 | NUR ---
DR. ISBELL AT BEDSIDE WITH PATIENT FOR MSE.
[2022-06-30] MEDS ORDERED: ACETAMINOPHEN 325 MG TABLET PO ONE (03:30)
[2022-06-30] MEDS ORDERED: LORazepam 1 MG TABLET PO ONE (03:45)
[2022-06-30] MEDS ORDERED: CETI10CA11 PO (04:28)
[2022-06-30] MEDS ORDERED: FLUT16SP16 NS (04:31)
[2022-06-30 04:44] VITALS: BP_SYST 127
--- NOTE | 2022-06-30 04:45 | NUR ---
Patient given written and verbal discharge instructions and verbalizes understanding. ER MD discussed with patient the results and treatment provided. Patient in stable condition. ID arm band removed. Rx of cetirizine hcl and flonase given. Patient educated on pain management and to follow up with PMD. Opportunity for questions provided and answered. Medication side effect fact sheet provided.
== END 2022-06-30 04:44 | disposition home or self-care (01) ==
LOC: SED 03:04
DX: F41.9 Anxiety disorder, unspecified (principal); R51.9 Headache, unspecified; R07.89 Other chest pain; J32.9 Chronic sinusitis, unspecified; I10 Essential (primary) hypertension; Z88.0 Allergy status to penicillin; Z88.1 Allergy status to other antibiotic agents; Z88.2 Allergy status to sulfonamides; Z88.6 Allergy status to analgesic agent; Z79.899 Other long term (current) drug therapy
CPT/HCPCS: 71045; 81025; 93005; 99283

== ENCOUNTER 2022-10-11 16:58 | Emergency (ER) | payer OTHER ==
[~2022-10-11] VITALS: Ht 162.6 cm; Wt 81.6 kg
[~2022-10-11 16:58] MED LIST changes: +CETI10CA11 PO; +FLUT16SP16 NS
--- NOTE | 2022-10-11 17:02 | NUR ---
Patient to ER bed 07 to gown for evaluation. Side rails up.
[2022-10-11 17:03] VITALS: BP_SYST 145
[2022-10-11] MEDS ORDERED: LORazepam 2 MG/ML VIAL IM ONE (17:15)
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
--- NOTE | 2022-10-11 17:49 | NUR ---
PT STATES SHE IS FEELING MUCH BETTER. ACI GIVEN BY . PT AGREES WITH D/C PLAN. VERB UNDERSTANDING OF ACI.
[2022-10-11 17:51] VITALS: BP_SYST 126
== END 2022-10-11 19:06 | disposition home or self-care (01) ==
LOC: SED 16:58
DX: F41.9 Anxiety disorder, unspecified (principal); I10 Essential (primary) hypertension; Z88.0 Allergy status to penicillin; Z88.1 Allergy status to other antibiotic agents; Z88.2 Allergy status to sulfonamides; Z88.6 Allergy status to analgesic agent; Z79.899 Other long term (current) drug therapy
CPT/HCPCS: 99283; 96372; J2060

== ENCOUNTER 2022-11-16 19:51 | Emergency (ER) | payer OTHER ==
[~2022-11-16] VITALS: Ht 162.6 cm; Wt 74.8 kg
[2022-11-16 19:58] VITALS: BP_SYST 124; PULSE 85; RESP 20; TEMP 97.2; O2SAT 97
[2022-11-16] MEDS ORDERED: LORA-259 PO ×2 (22:36→23:19)
[2022-11-16 22:54] VITALS: BP_SYST 124; PULSE 78; RESP 18; TEMP 98.7; O2SAT 98
== END 2022-11-16 22:52 | disposition home or self-care (01) ==
LOC: SED 19:51
DX: F41.9 Anxiety disorder, unspecified (principal); M79.621 Pain in right upper arm; I10 Essential (primary) hypertension; Z88.0 Allergy status to penicillin; Z88.1 Allergy status to other antibiotic agents; Z88.2 Allergy status to sulfonamides; Z88.6 Allergy status to analgesic agent; Z79.899 Other long term (current) drug therapy
CPT/HCPCS: 93005; 99283

== ENCOUNTER 2022-12-13 15:14 | Emergency (ER) | payer OTHER ==
[~2022-12-13] VITALS: Ht 162.6 cm; Wt 88.9 kg
[~2022-12-13 15:14] MED LIST changes: +ONDA8TAB60 PO
[2022-12-13 15:22] VITALS: BP_SYST 135; PULSE 96; RESP 22; TEMP 98.3; O2SAT 98
[2022-12-13 16:17] LABS: BASOPHILS % (AUTO) 0.5 % (0.0-2.0); EOSINOPHILS # (AUTO) 0.3 K/uL (0.0-0.4); EOSINOPHILS % (AUTO) 3.6 % (0.0-4.0); HEMOGLOBIN 13.4 g/dL (12.0-16.0); LYMPHOCYTES # (AUTO) 1.7 K/uL (1.0-5.5); LYMPHOCYTES % (AUTO) 20.7 % (20.5-51.5); MEAN CORPUSCULAR HEMOGLOBIN 33 pg (27-31); MEAN CORPUSCULAR HGB CONC 34 % (32-36); MEAN CORPUSCULAR VOLUME 97 fL (79.0-98.0); MONOCYTES # (AUTO) 0.5 K/uL (0.0-1.0); MONOCYTES % (AUTO) 6.3 % (1.7-9.3); NEUTROPHILS # (AUTO) 5.8 K/uL (1.8-7.7); NEUTROPHILS % (AUTO) 68.9 % (40.0-70.0); PLATELET COUNT (AUTO) 218 K/uL (130-430); RED BLOOD CELL COUNT(AUTO) 4.11 MIL/uL (4.2-6.2); RED CELL DISTRIBUTION WIDTH 13.3 % (9.0-15.0); WHITE BLOOD COUNT (AUTO) 8.4 K/uL (4.8-10.8)
[2022-12-13 16:22] LABS: ANION GAP 11 (5-15); CALCIUM 8.6 mg/dL (8.4-11.0); CARBON DIOXIDE 26 mmol/L (23-29); CHLORIDE 104 mmol/L (98-107); CREATININE 0.67 mg/dL (0.55-1.30); GFR AFRICAN AMERICAN 125 mL/min (>90); GLUCOSE 98 mg/dL (74-106); POTASSIUM 3.5 mmol/L (3.5-5.1); SODIUM SERUM 141 mmol/L (136-145); UREA NITROGEN, BLOOD 9 mg/dL (8-21)
[2022-12-13 16:25] LABS: GFR NON AFRICAN-AMERICAN 103 mL/min (>90); PROTHROMBIN TIME 10.2 SECS (9.5-12.5)
[2022-12-13 16:35] LABS: ALANINE AMINOTRANSFERASE 57 U/L (12-78); ALBUMIN 3.6 g/dL (3.4-4.8); ASPARTATE AMINOTRANSFERASE 57 U/L (10-37); FREE T4 (FREE THYROXINE) 0.8 ng/dL (0.6-1.6); THYROID STIMULATING HORMONE 3.12 uIu/mL (0.34-4.82); TOTAL BILIRUBIN 0.5 mg/dL (0.0-1.0); TOTAL PROTEIN, SERUM 7.9 g/dL (6.4-8.3)
[2022-12-13] MEDS ORDERED: LORazepam 1 MG TABLET PO ONE (18:00)
== END 2022-12-13 18:28 | disposition home or self-care (01) ==
LOC: SED 15:14
DX: F41.9 Anxiety disorder, unspecified (principal); R00.2 Palpitations; I10 Essential (primary) hypertension; Z88.0 Allergy status to penicillin; Z88.1 Allergy status to other antibiotic agents; Z88.2 Allergy status to sulfonamides; Z88.6 Allergy status to analgesic agent; Z79.899 Other long term (current) drug therapy
CPT/HCPCS: 36415; 71045; 80053; 84439; 84443; 84484; 85025; 85610-TC; 85730-TC; 99284; 99285

== ENCOUNTER 2022-12-27 01:37 | Emergency (ER) | payer OTHER ==
[~2022-12-27] VITALS: Ht 162.6 cm; Wt 81.6 kg
[2022-12-27 01:55] VITALS: BP_SYST 148; PULSE 84; RESP 18; TEMP 98.2; O2SAT 96
[2022-12-27] MEDS ORDERED: LORA-259 PO (02:59)
[2022-12-27 03:05] VITALS: BP_SYST 130; PULSE 83; RESP 18; TEMP 98; O2SAT 97
== END 2022-12-27 03:05 | disposition home or self-care (01) ==
LOC: SED 01:37
DX: F41.9 Anxiety disorder, unspecified (principal); I10 Essential (primary) hypertension; Z88.0 Allergy status to penicillin; Z88.1 Allergy status to other antibiotic agents; Z88.2 Allergy status to sulfonamides; Z88.6 Allergy status to analgesic agent; Z79.899 Other long term (current) drug therapy
CPT/HCPCS: 81025; 99283

== ENCOUNTER 2022-12-31 15:30 | Emergency (ER) | payer OTHER ==
[~2022-12-31] VITALS: Ht 162.6 cm; Wt 83.9 kg
[2022-12-31 15:35] VITALS: BP_SYST 125; PULSE 84; RESP 19; TEMP 97.9; O2SAT 98
[2022-12-31] MEDS ORDERED: ONDANSETRON 4 MG ODT TAB PO ONE (16:45)
[2022-12-31] MEDS ORDERED: LORazepam 1 MG TABLET PO ONE (16:45)
[2022-12-31 17:41] LABS: BASOPHILS # (AUTO) 0.1 K/uL (0.0-0.2); BASOPHILS % (AUTO) 0.7 % (0.0-2.0); EOSINOPHILS # (AUTO) 0.4 K/uL (0.0-0.4); HEMATOCRIT 40.6 % (36-48); HEMOGLOBIN 13.5 g/dL (12.0-16.0); LYMPHOCYTES # (AUTO) 1.7 K/uL (1.0-5.5); LYMPHOCYTES % (AUTO) 24.2 % (20.5-51.5); MEAN CORPUSCULAR HEMOGLOBIN 32 pg (27-31); MEAN CORPUSCULAR HGB CONC 33 % (32-36); MEAN CORPUSCULAR VOLUME 97 fL (79.0-98.0); MONOCYTES # (AUTO) 0.4 K/uL (0.0-1.0); MONOCYTES % (AUTO) 5.6 % (1.7-9.3); NEUTROPHILS # (AUTO) 4.5 K/uL (1.8-7.7); NEUTROPHILS % (AUTO) 63.5 % (40.0-70.0); PLATELET COUNT (AUTO) 290 K/uL (130-430); RED BLOOD CELL COUNT(AUTO) 4.18 MIL/uL (4.2-6.2); RED CELL DISTRIBUTION WIDTH 13.2 % (9.0-15.0)
[2022-12-31 17:53] LABS: CALCIUM 8.6 mg/dL (8.4-11.0); CREATININE 0.62 mg/dL (0.55-1.30); POTASSIUM 3.7 mmol/L (3.5-5.1)
[2022-12-31 17:58] LABS: ALBUMIN 3.7 g/dL (3.4-4.8); TOTAL BILIRUBIN 0.4 mg/dL (0.0-1.0); TOTAL PROTEIN, SERUM 7.8 g/dL (6.4-8.3)
[2022-12-31] MEDS ORDERED: LORA-259 PO (18:13)
[2022-12-31] MEDS ORDERED: ONDA-8 TL (18:13)
[2022-12-31 18:22] VITALS: BP_SYST 122; PULSE 74; RESP 19; TEMP 97.9; O2SAT 98
== END 2022-12-31 18:22 | disposition home or self-care (01) ==
LOC: SED 15:30
DX: F41.9 Anxiety disorder, unspecified (principal); T43.595A Adverse effect of other antipsychotics and neuroleptics, initial encounter; M62.838 Other muscle spasm; R11.0 Nausea; I10 Essential (primary) hypertension; Z88.0 Allergy status to penicillin; Z88.1 Allergy status to other antibiotic agents; Z88.2 Allergy status to sulfonamides; Z88.6 Allergy status to analgesic agent; Y92.89 Other specified places as the place of occurrence of the external cause; Z79.899 Other long term (current) drug therapy
CPT/HCPCS: 99284; 80053; 82550; 83735; 84100; 85025; 36415; 93005; Q0162

== ENCOUNTER 2023-01-03 14:07 | Emergency (ER) | payer OTHER ==
[~2023-01-03] VITALS: Ht 162.6 cm; Wt 64.4 kg
[~2023-01-03 14:07] MED LIST changes: +ONDA-8 TL
[2023-01-03 14:41] VITALS: BP_SYST 146; PULSE 72; RESP 18; TEMP 98.3; O2SAT 98
[2023-01-03] MEDS ORDERED: ONDANSETRON 4 MG ODT TAB PO ONE (15:15)
[2023-01-03] MEDS ORDERED: ONDA-8 TL (15:22)
[2023-01-03 18:12] VITALS: BP_SYST 120; PULSE 72; RESP 16; O2SAT 98
== END 2023-01-03 16:00 | disposition home or self-care (01) ==
LOC: SED 14:07
DX: F41.1 Generalized anxiety disorder (principal); M62.830 Muscle spasm of back; R11.0 Nausea; I10 Essential (primary) hypertension; Z88.0 Allergy status to penicillin; Z88.1 Allergy status to other antibiotic agents; Z88.2 Allergy status to sulfonamides; Z88.6 Allergy status to analgesic agent; Z79.899 Other long term (current) drug therapy
CPT/HCPCS: 99283; Q0162

== ENCOUNTER 2023-01-07 14:52 | Emergency (ER) | payer OTHER ==
[~2023-01-07] VITALS: Ht 162.6 cm; Wt 61.7 kg
[2023-01-07 14:56] VITALS: BP_SYST 140; PULSE 91; RESP 20; TEMP 98.1; O2SAT 98
[2023-01-07] MEDS ORDERED: HYDR-500 PO (16:29)
[2023-01-07 17:17] VITALS: BP_SYST 140; PULSE 91; RESP 20; TEMP 98.1; O2SAT 98
== END 2023-01-07 17:20 | disposition home or self-care (01) ==
LOC: SED 14:52
DX: F41.9 Anxiety disorder, unspecified (principal); R00.2 Palpitations; R06.02 Shortness of breath; I10 Essential (primary) hypertension; Z88.0 Allergy status to penicillin; Z88.1 Allergy status to other antibiotic agents; Z88.2 Allergy status to sulfonamides; Z88.6 Allergy status to analgesic agent; Z79.899 Other long term (current) drug therapy
CPT/HCPCS: 99283

== ENCOUNTER 2023-01-13 00:49 | Emergency (ER) | payer OTHER ==
[~2023-01-13] VITALS: Ht 162.6 cm; Wt 81.6 kg
[~2023-01-13 00:49] MED LIST changes: +HYDR-500 PO
[2023-01-13 01:00] VITALS: BP_SYST 136; PULSE 84; RESP 18; TEMP 97.8; O2SAT 99
[2023-01-13] MEDS: LORazepam 2 MG/ML VIAL IM ONE (01:12)
[2023-01-13 02:16] VITALS: BP_SYST 126; PULSE 72; RESP 16; TEMP 97.8; O2SAT 100
== END 2023-01-13 01:38 | disposition home or self-care (01) ==
LOC: SED 00:49
DX: R06.4 Hyperventilation (principal); F41.9 Anxiety disorder, unspecified; R20.2 Paresthesia of skin; I10 Essential (primary) hypertension; Z88.0 Allergy status to penicillin; Z88.1 Allergy status to other antibiotic agents; Z88.2 Allergy status to sulfonamides; Z88.6 Allergy status to analgesic agent; Z79.899 Other long term (current) drug therapy
CPT/HCPCS: 99283; 96372; J2060

== ENCOUNTER 2023-01-13 12:36 | Emergency (ER) | payer OTHER ==
[~2023-01-13] VITALS: Ht 162.6 cm; Wt 81.6 kg
[2023-01-13 12:37] VITALS: BP_SYST 139; PULSE 89; RESP 18; TEMP 97.2; O2SAT 99
[2023-01-13] MEDS ORDERED: LORazepam 1 MG TABLET PO ONE (13:15)
[2023-01-13 13:27] VITALS: BP_SYST 139; PULSE 89; RESP 18; TEMP 97.2; O2SAT 99
== END 2023-01-13 13:27 | disposition home or self-care (01) ==
LOC: SED 12:36
DX: F41.9 Anxiety disorder, unspecified (principal); I10 Essential (primary) hypertension; Z88.0 Allergy status to penicillin; Z88.1 Allergy status to other antibiotic agents; Z88.2 Allergy status to sulfonamides; Z88.6 Allergy status to analgesic agent; Z79.899 Other long term (current) drug therapy
CPT/HCPCS: 99283

== ENCOUNTER 2023-01-18 18:07 | Emergency (ER) | payer OTHER ==
[~2023-01-18] VITALS: Ht 162.6 cm; Wt 81.6 kg
[2023-01-18 18:31] VITALS: BP_SYST 146; PULSE 122; RESP 16; TEMP 98.3; O2SAT 96
[2023-01-18] MEDS ORDERED: LORazepam 1 MG TABLET PO ONE (19:00)
[2023-01-18] MEDS ORDERED: LORA-259 PO (20:59)
[2023-01-18 21:50] VITALS: BP_SYST 126; PULSE 88; RESP 16; TEMP 98.5; O2SAT 98
== END 2023-01-18 21:50 | disposition home or self-care (01) ==
LOC: SED 18:07
DX: F41.9 Anxiety disorder, unspecified (principal); R00.2 Palpitations; I10 Essential (primary) hypertension; Z88.0 Allergy status to penicillin; Z88.1 Allergy status to other antibiotic agents; Z88.2 Allergy status to sulfonamides; Z88.6 Allergy status to analgesic agent; Z79.899 Other long term (current) drug therapy
CPT/HCPCS: 99283

== ENCOUNTER 2023-02-07 20:35 | Emergency (ER) | payer MEDICAID, OTHER ==
[~2023-02-07] VITALS: Ht 162.6 cm; Wt 81.6 kg
[~2023-02-07 20:35] MED LIST changes: +LORA-258 PO
[2023-02-07 20:39] VITALS: BP_SYST 144; PULSE 95; RESP 18; TEMP 97.5; O2SAT 97
[2023-02-07] MEDS ORDERED: IBUP-1969 PO (23:56)
[2023-02-08 00:09] VITALS: BP_SYST 141; PULSE 87; RESP 18; TEMP 97.5; O2SAT 97
[2023-02-08] MEDS ORDERED: LORA-259 PO (13:42)
== END 2023-02-08 00:09 | disposition home or self-care (01) ==
LOC: SED 20:35
DX: S93.401A Sprain of unspecified ligament of right ankle, initial encounter (principal); I10 Essential (primary) hypertension; Z88.0 Allergy status to penicillin; Z88.1 Allergy status to other antibiotic agents; Z88.2 Allergy status to sulfonamides; Z88.6 Allergy status to analgesic agent; Z79.899 Other long term (current) drug therapy; W18.40XA Slipping, tripping and stumbling without falling, unspecified, initial encounter; Y93.89 Activity, other specified; Y92.481 Parking lot as the place of occurrence of the external cause; Y99.8 Other external cause status
CPT/HCPCS: 73560-TC; 99284

== ENCOUNTER 2023-02-08 11:12 | Emergency (ER) | payer MEDICAID ==
[~2023-02-08] VITALS: Ht 165.1 cm; Wt 72.6 kg
[~2023-02-08 11:12] MED LIST changes: +IBUP-1969 PO
[2023-02-08 11:20] VITALS: BP_SYST 146; PULSE 104; RESP 22; TEMP 98.1; O2SAT 99
[2023-02-08 11:55] LABS: BASOPHILS % (AUTO) 0.5 % (0.0-2.0); EOSINOPHILS # (AUTO) 0.4 K/uL (0.0-0.4); EOSINOPHILS % (AUTO) 6.3 % (0.0-4.0); HEMATOCRIT 40.8 % (36-48); HEMOGLOBIN 13.7 g/dL (12.0-16.0); LYMPHOCYTES # (AUTO) 1.1 K/uL (1.0-5.5); LYMPHOCYTES % (AUTO) 18.1 % (20.5-51.5); MEAN CORPUSCULAR HEMOGLOBIN 32 pg (27-31); MEAN CORPUSCULAR HGB CONC 33 % (32-36); MEAN CORPUSCULAR VOLUME 97 fL (79.0-98.0); MONOCYTES # (AUTO) 0.4 K/uL (0.0-1.0); MONOCYTES % (AUTO) 5.7 % (1.7-9.3); NEUTROPHILS # (AUTO) 4.3 K/uL (1.8-7.7); NEUTROPHILS % (AUTO) 69.4 % (40.0-70.0); PLATELET COUNT (AUTO) 255 K/uL (130-430); RED BLOOD CELL COUNT(AUTO) 4.23 MIL/uL (4.2-6.2); RED CELL DISTRIBUTION WIDTH 13.4 % (9.0-15.0); WHITE BLOOD COUNT (AUTO) 6.3 K/uL (4.8-10.8)
[2023-02-08 12:30] LABS: ANION GAP 9 (5-15); CALCIUM 8.7 mg/dL (8.4-11.0); CARBON DIOXIDE 28 mmol/L (23-29); CHLORIDE 103 mmol/L (98-107); CREATININE 0.75 mg/dL (0.55-1.30); GFR AFRICAN AMERICAN 110 mL/min (>90); GLUCOSE 123 mg/dL (74-106); POTASSIUM 3.5 mmol/L (3.5-5.1); SODIUM SERUM 140 mmol/L (136-145); UREA NITROGEN, BLOOD 6 mg/dL (8-21)
[2023-02-08 12:33] LABS: GFR NON AFRICAN-AMERICAN 91 mL/min (>90)
[2023-02-08 12:44] LABS: ALANINE AMINOTRANSFERASE 87 U/L (12-78); ASPARTATE AMINOTRANSFERASE 62 U/L (10-37); FREE T4 (FREE THYROXINE) 0.9 ng/dL (0.6-1.6); THYROID STIMULATING HORMONE 2.21 uIu/mL (0.34-4.82); TOTAL BILIRUBIN 0.4 mg/dL (0.0-1.0); TOTAL PROTEIN, SERUM 8.4 g/dL (6.4-8.3)
[2023-02-08 13:24] LABS: BARBITURATE, URINE NEGATIVE (NEG <=200); BENZODIAZEPINE, URINE POSITIVE (NEG <=150); CANNABINOID, URINE NEGATIVE (NEG <=50); COCAINE, URINE NEGATIVE (NEG <=150); METHAMPHETAMINES SCREEN,URINE NEGATIVE (NEG <=500); OPIATE, URINE NEGATIVE (NEG <=100); PHENCYCLIDINE SCREEN,URINE NEGATIVE (NEG <=25); UR TRICYCLIC ANTIDEPRESSANTS NEGATIVE (NEG <=300); URINE AMPHETAMINE NEGATIVE (NEG <=500); URINE METHADONE NEGATIVE (NEG <=200); URINE OXYCODONE SCREEN NEGATIVE (NEG <=100); URINE PROPOXYPHENE SCREEN NEGATIVE (NEG <=300)
[2023-02-08] MEDS ORDERED: LORA-259 PO (13:42)
[2023-02-08 14:19] VITALS: BP_SYST 122; PULSE 65; RESP 16; TEMP 98.1; O2SAT 98
== END 2023-02-08 14:19 | disposition home or self-care (01) ==
LOC: SED 11:12
DX: F41.9 Anxiety disorder, unspecified (principal); R00.2 Palpitations; I10 Essential (primary) hypertension; Z88.0 Allergy status to penicillin; Z88.1 Allergy status to other antibiotic agents; Z88.2 Allergy status to sulfonamides; Z88.6 Allergy status to analgesic agent; Z79.899 Other long term (current) drug therapy
CPT/HCPCS: 36415; 71045; 80053; 80307; 83880; 84439; 84443; 84484; 85025; 93005; 99285

== ENCOUNTER 2023-02-17 17:03 | Emergency (ER) | payer MEDICAID ==
[~2023-02-17] VITALS: Ht 162.6 cm; Wt 83.5 kg
[2023-02-17 17:10] VITALS: BP_SYST 112; PULSE 70; RESP 18; TEMP 98.2; O2SAT 97
[2023-02-17 19:28] VITALS: BP_SYST 112; PULSE 70; RESP 18; TEMP 98.2; O2SAT 97
== END 2023-02-17 19:23 | disposition home or self-care (01) ==
LOC: SED 17:03
DX: F41.0 Panic disorder [episodic paroxysmal anxiety] (principal); R20.2 Paresthesia of skin; I10 Essential (primary) hypertension; Z88.0 Allergy status to penicillin; Z88.1 Allergy status to other antibiotic agents; Z88.2 Allergy status to sulfonamides; Z88.6 Allergy status to analgesic agent; Z79.899 Other long term (current) drug therapy
CPT/HCPCS: 93005; 99283

== ENCOUNTER 2023-03-10 17:13 | Emergency (ER) | payer MEDICAID ==
[~2023-03-10] VITALS: Ht 162.6 cm; Wt 84.8 kg
[2023-03-10 17:21] VITALS: BP_SYST 158; PULSE 86; RESP 18; TEMP 98.3; O2SAT 98
[2023-03-10] MEDS ORDERED: LORA-259 PO (17:48)
[2023-03-10 17:58] VITALS: BP_SYST 148; PULSE 86; RESP 18; TEMP 98.3; O2SAT 98
[2023-03-10] MEDS ORDERED: LORazepam 1 MG TABLET PO ONE (19:45)
== END 2023-03-10 17:59 | disposition home or self-care (01) ==
LOC: SED 17:13
DX: F41.9 Anxiety disorder, unspecified (principal); R06.02 Shortness of breath; I10 Essential (primary) hypertension; Z88.0 Allergy status to penicillin; Z88.1 Allergy status to other antibiotic agents; Z88.2 Allergy status to sulfonamides; Z88.6 Allergy status to analgesic agent; Z79.899 Other long term (current) drug therapy
CPT/HCPCS: 99283

== ENCOUNTER 2023-03-11 11:40 | Emergency (ER) | payer MEDICAID ==
[~2023-03-11] VITALS: Ht 165.1 cm; Wt 64.4 kg
[2023-03-11 11:50] VITALS: PULSE 97; RESP 18; TEMP 98.1; O2SAT 98
[2023-03-11] MEDS ORDERED: LORazepam 1 MG TABLET PO ONE (14:45)
[2023-03-11] MEDS ORDERED: LORazepam 1 MG TABLET ONE (15:15)
[2023-03-11 15:37] VITALS: PULSE 97; RESP 18; TEMP 98.1; O2SAT 98
== END 2023-03-11 15:37 | disposition home or self-care (01) ==
LOC: SED 11:40
DX: F41.9 Anxiety disorder, unspecified (principal); I10 Essential (primary) hypertension; Z88.0 Allergy status to penicillin; Z88.1 Allergy status to other antibiotic agents; Z88.2 Allergy status to sulfonamides; Z88.6 Allergy status to analgesic agent; Z79.899 Other long term (current) drug therapy
CPT/HCPCS: 99283

== ENCOUNTER 2023-03-16 20:48 | Emergency (ER) | payer MEDICAID ==
[~2023-03-16] VITALS: Ht 162.6 cm; Wt 79.4 kg
[2023-03-16 21:00] VITALS: BP_SYST 139; PULSE 100; RESP 18; TEMP 97.7; O2SAT 98
[2023-03-16 22:05] VITALS: TEMP 97.7
[2023-03-16] MEDS ORDERED: LORA-259 PO (23:22)
[2023-03-16] MEDS ORDERED: LORazepam 1 MG TABLET PO ONE (23:30)
[2023-03-16 23:43] VITALS: BP_SYST 141; PULSE 82; RESP 18; O2SAT 97
== END 2023-03-16 23:43 | disposition home or self-care (01) ==
LOC: SED 20:48
DX: F41.9 Anxiety disorder, unspecified (principal); I10 Essential (primary) hypertension; R00.2 Palpitations; F43.9 Reaction to severe stress, unspecified; Z88.0 Allergy status to penicillin; Z88.2 Allergy status to sulfonamides; Z88.6 Allergy status to analgesic agent; Z79.899 Other long term (current) drug therapy
CPT/HCPCS: 99283

== ENCOUNTER 2023-03-17 12:40 | Emergency (ER) | payer MEDICAID ==
[~2023-03-17] VITALS: Ht 165.1 cm; Wt 77.1 kg
[2023-03-17 12:40] VITALS: BP_SYST 139; PULSE 101; RESP 19; TEMP 97.2; O2SAT 99
== END 2023-03-17 12:45 | disposition left against medical advice (07) ==
LOC: SED 12:40
DX: F41.9 Anxiety disorder, unspecified (principal); I10 Essential (primary) hypertension; Z88.2 Allergy status to sulfonamides; Z88.1 Allergy status to other antibiotic agents; Z88.0 Allergy status to penicillin; Z88.6 Allergy status to analgesic agent; Z79.899 Other long term (current) drug therapy
CPT/HCPCS: 99281

== ENCOUNTER 2023-06-28 19:15 | Emergency (ER) | payer MEDICAID ==
[~2023-06-28] VITALS: Ht 162.6 cm; Wt 83.0 kg
[2023-06-28 19:36] VITALS: BP_SYST 151; PULSE 95; RESP 20; TEMP 97.7; O2SAT 98
[2023-06-28] MEDS: LORazepam 1 MG TABLET PO ONE (20:55)
[2023-06-28 20:59] VITALS: BP_SYST 150; PULSE 93; RESP 18; TEMP 97.8; O2SAT 98
== END 2023-06-28 20:59 | disposition home or self-care (01) ==
LOC: SED 19:15
DX: F41.9 Anxiety disorder, unspecified (principal); I10 Essential (primary) hypertension; Z79.899 Other long term (current) drug therapy; Z88.0 Allergy status to penicillin; Z88.2 Allergy status to sulfonamides; Z88.1 Allergy status to other antibiotic agents; Z88.6 Allergy status to analgesic agent
CPT/HCPCS: 99283

== ENCOUNTER 2023-07-05 14:09 | Emergency (ER) | payer MEDICAID ==
[~2023-07-05] VITALS: Ht 162.6 cm; Wt 81.6 kg
[2023-07-05 14:36] VITALS: BP_SYST 136; PULSE 84; RESP 20; TEMP 98.1; O2SAT 96
[2023-07-05] MEDS: LORazepam 1 MG TABLET PO ONE (15:13)
== END 2023-07-05 15:32 | disposition home or self-care (01) ==
LOC: SED 14:09
DX: F41.9 Anxiety disorder, unspecified (principal); I10 Essential (primary) hypertension; Z88.0 Allergy status to penicillin; Z88.2 Allergy status to sulfonamides; Z88.1 Allergy status to other antibiotic agents; Z88.6 Allergy status to analgesic agent; Z79.899 Other long term (current) drug therapy
CPT/HCPCS: 99283

== ENCOUNTER 2023-07-19 18:02 | Emergency (ER) | payer MEDICAID ==
[~2023-07-19] VITALS: Ht 162.6 cm; Wt 80.7 kg
[2023-07-19 18:29] VITALS: BP_SYST 149; PULSE 83; RESP 18; TEMP 98.2; O2SAT 98
[2023-07-19] MEDS: LORazepam 2 MG/ML VIAL IM ONE (18:49)
[2023-07-19 19:10] VITALS: RESP 18; TEMP 98.2
[2023-07-19 19:25] VITALS: BP_SYST 144; PULSE 87; O2SAT 98
== END 2023-07-19 19:18 | disposition home or self-care (01) ==
LOC: SED 18:02
DX: F41.0 Panic disorder [episodic paroxysmal anxiety] (principal); R20.2 Paresthesia of skin; Z88.0 Allergy status to penicillin; Z88.1 Allergy status to other antibiotic agents; Z88.2 Allergy status to sulfonamides; Z88.6 Allergy status to analgesic agent; Z79.899 Other long term (current) drug therapy
CPT/HCPCS: 99283; 96372; J2060

== ENCOUNTER 2023-08-01 02:24 | Emergency (ER) | payer MEDICAID ==
[~2023-08-01] VITALS: Ht 162.6 cm; Wt 80.7 kg
[2023-08-01 02:32] VITALS: BP_SYST 97; PULSE 84; RESP 20; TEMP 97; O2SAT 96
[2023-08-01 03:02] LABS: BASOPHILS % (AUTO) 0.7 % (0.0-2.0); EOSINOPHILS # (AUTO) 0.5 K/uL (0.0-0.4); EOSINOPHILS % (AUTO) 7.6 % (0.0-4.0); HEMATOCRIT 39.2 % (36-48); HEMOGLOBIN 13.4 g/dL (12.0-16.0); LYMPHOCYTES # (AUTO) 1.8 K/uL (1.0-5.5); LYMPHOCYTES % (AUTO) 27.5 % (20.5-51.5); MEAN CORPUSCULAR HEMOGLOBIN 32 pg (27-31); MEAN CORPUSCULAR HGB CONC 34 % (32-36); MEAN CORPUSCULAR VOLUME 93 fL (79.0-98.0); MONOCYTES # (AUTO) 0.4 K/uL (0.0-1.0); MONOCYTES % (AUTO) 6.3 % (1.7-9.3); NEUTROPHILS # (AUTO) 3.9 K/uL (1.8-7.7); NEUTROPHILS % (AUTO) 57.9 % (40.0-70.0); PLATELET COUNT (AUTO) 256 K/uL (130-430); RED CELL DISTRIBUTION WIDTH 14.8 % (9.0-15.0); WHITE BLOOD COUNT (AUTO) 6.7 K/uL (4.8-10.8)
[2023-08-01 03:14] LABS: CALCIUM 8.5 mg/dL (8.4-11.0); CREATININE 0.75 mg/dL (0.55-1.30); POTASSIUM 3.7 mmol/L (3.5-5.1)
[2023-08-01] MEDS: LORazepam 1 MG TABLET PO ONE (03:46)
[2023-08-01 03:54] LABS: BARBITURATE, URINE NEGATIVE (NEG <=200); BENZODIAZEPINE, URINE POSITIVE (NEG <=150); CANNABINOID, URINE NEGATIVE (NEG <=50); COCAINE, URINE NEGATIVE (NEG <=150); METHAMPHETAMINES SCREEN,URINE NEGATIVE (NEG <=500); OPIATE, URINE NEGATIVE (NEG <=100); PHENCYCLIDINE SCREEN,URINE NEGATIVE (NEG <=25); UR TRICYCLIC ANTIDEPRESSANTS NEGATIVE (NEG <=300); URINE AMPHETAMINE NEGATIVE (NEG <=500); URINE METHADONE NEGATIVE (NEG <=200); URINE OXYCODONE SCREEN NEGATIVE (NEG <=100)
[2023-08-01 03:56] VITALS: BP_SYST 97; PULSE 84; RESP 20; TEMP 97; O2SAT 96
== END 2023-08-01 03:56 | disposition home or self-care (01) ==
LOC: SED 02:24
DX: F41.9 Anxiety disorder, unspecified (principal); R20.2 Paresthesia of skin; I10 Essential (primary) hypertension; Z88.0 Allergy status to penicillin; Z88.1 Allergy status to other antibiotic agents; Z88.2 Allergy status to sulfonamides; Z88.6 Allergy status to analgesic agent; Z79.899 Other long term (current) drug therapy
CPT/HCPCS: 36415; 80048; 80307; 81025; 85025; 99283

== ENCOUNTER 2024-02-07 11:17 | Emergency (ER) | payer MEDICAID ==
[~2024-02-07] VITALS: Ht 162.6 cm; Wt 79.4 kg
[2024-02-07 11:22] VITALS: BP_SYST 140; PULSE 90; RESP 17; TEMP 97.7; O2SAT 97
[2024-02-07] MEDS: LORazepam 1 MG TABLET PO ONE (12:17)
[2024-02-07 13:50] VITALS: BP_SYST 116; PULSE 74; RESP 17; TEMP 97.7; O2SAT 97
== END 2024-02-07 13:44 | disposition home or self-care (01) ==
LOC: SED 11:17
DX: F41.9 Anxiety disorder, unspecified (principal); R07.89 Other chest pain; R06.02 Shortness of breath; F32.A Depression, unspecified; I10 Essential (primary) hypertension; Z88.0 Allergy status to penicillin; Z88.2 Allergy status to sulfonamides; Z88.1 Allergy status to other antibiotic agents; Z79.899 Other long term (current) drug therapy
CPT/HCPCS: 71045; 81025; 93005; 99283